=== PATIENT | male | born 1945 | race Caucasian/White ===

== ENCOUNTER 2017-10-03 10:05 | Observation (INO) | payer OTHER ==
[~2017-10-03] VITALS: Ht 180.3 cm; Wt 96.0 kg
[2017-10-03 10:07] VITALS: BP 163/77; PULSE 88; RESP 14; TEMP 99.1; O2SAT 95
--- NOTE | 2017-10-03 10:47 | PD ---
HPI Chief Complaint: GI Complaint Time Seen by Provider: 10:45 Travel History International Travel<30 days: No Contact w/Intl Traveler<30days: No Traveled to known affect area: No History of Present Illness HPI 72-year-old male came to the emergency room with history of black tarry stool that started 2 days ago. Patient says that he was out of town in [facility] 3 days ago where he had a near syncopal episode and was seen in the local emergency room. They worked him up and everything was within normal limit and eventually discharge him home. That night when he was in the hotel he noticed that he was having black tarry stool. Since then he has had couple episodes every day. When he had one this morning he decided to come to the emergency room. He has been little lightheaded and dizzy. Patient takes 1 baby aspirin every day. Also lately he's been having some neck pain radiating down his left arm for which she has been going to chiropractor and taking over- the-counter NSAID medication. He has never had GI bleed in the past. Vital signs were stable. No history of nausea vomiting. He does have some epigastric discomfort. [facility] Past Medical History Narrative Medical List of his past medical, surgical, social and family history is reviewed from the nursing note. Social History Tobacco Use: No Allergies-Medications (Allergen,Severity, Reaction): Coded Allergies: No Known Allergies (Unverified , 10/03/17) Comments No known drug allergies. Reported Meds & Prescriptions Reported Meds & Active Scripts Active Reported Pravastatin 10 Mg Tab 10 Mg PO DAILY Viagra (Sildenafil Citrate) 50 Mg Tab 50 Mg PO DAILY PRN Narrative Medication List of his home medications reviewed from the nursing note. Review of Systems Except as stated in HPI: all other systems reviewed are Neg Gastrointestinal: Positive: Other (melena) Physical Exam Narrative GENERAL: Awake, alert, mild distress SKIN: Focused skin assessment warm/dry. HEAD: Atraumatic. Normocephalic. EYES: Pupils equal and round. No scleral icterus. No injection or drainage. ENT: No nasal bleeding or discharge. Mucous membranes pink and moist. NECK: Trachea midline. No JVD. CARDIOVASCULAR: Regular rate and rhythm. No murmur appreciated. RESPIRATORY: No accessory muscle use. Clear to auscultation. Breath sounds equal bilaterally. GASTROINTESTINAL: Abdomen soft, non-tender, nondistended. Hepatic and splenic margins not palpable. MUSCULOSKELETAL: No obvious deformities. No clubbing. No cyanosis. No edema. NEUROLOGICAL: Awake and alert. No obvious cranial nerve deficits. Motor grossly within normal limits. Normal speech. PSYCHIATRIC: Appropriate mood and affect; insight and judgment normal. Data Data Last Documented VS Vital Signs Date Time Temp Pulse Resp B/P (MAP) Pulse Ox O2 Delivery O2 Flow Rate FiO2 10/03/17 11:03 71 16 148/70 (96) 98 Room Air 10/03/17 10:07 99.1 Orders Orders Complete Blood Count With Diff (10/03/17 11:05) Comprehensive Metabolic Panel (10/03/17 11:05) Lipase (10/03/17 11:05) Prothrombin Time / Inr (Pt) (10/03/17 11:05) Type And Screen (10/03/17 11:05) Ecg Monitoring (10/03/17 11:05) Iv Access Insert/Monitor (10/03/17 11:05) Oximetry (10/03/17 11:05) Sodium Chlor 0.9% 1000 Ml Inj (Ns 1000 M (10/03/17 11:05) Sodium Chloride 0.9% Flush (Ns Flush) (10/03/17 11:15) Sodium Chloride 0.9... W/Pantoprazole In (10/03/17 11:05) Sodium Chloride 0.9... W/Pantoprazole In (10/03/17 11:05) Admit Order (Ed Use Only) (10/03/17 13:00) Labs Laboratory Tests Test 10/03/17 11:10 White Blood Count 8.7 TH/MM3 Red Blood Count 3.09 MIL/MM3 Hemoglobin 10.3 GM/DL Hematocrit 30.4 % Mean Corpuscular Volume 98.4 FL Mean Corpuscular Hemoglobin 33.2 PG Mean Corpuscular Hemoglobin Concent 33.7 % Red Cell Distribution Width 14.0 % Platelet Count 293 TH/MM3 Mean Platelet Volume 8.6 FL Neutrophils (%) (Auto) 69.0 % Lymphocytes (%) (Auto) 22.2 % Monocytes (%) (Auto) 7.8 % Eosinophils (%) (Auto) 0.7 % Basophils (%) (Auto) 0.3 % Neutrophils # (Auto) 6.0 TH/MM3 Lymphocytes # (Auto) 1.9 TH/MM3 Monocytes # (Auto) 0.7 TH/MM3 Eosinophils # (Auto) 0.1 TH/MM3 Basophils # (Auto) 0.0 TH/MM3 CBC Comment DIFF FINAL Differential Comment Prothrombin Time 9.6 SEC Prothromb Time International Ratio 0.9 RATIO Blood Urea Nitrogen 21 MG/DL Creatinine 0.96 MG/DL Random Glucose 94 MG/DL Total Protein 7.0 GM/DL Albumin 3.7 GM/DL Calcium Level 8.6 MG/DL Alkaline Phosphatase 59 U/L Aspartate Amino Transf (AST/SGOT) 27 U/L Alanine Aminotransferase (ALT/SGPT) 37 U/L Total Bilirubin 0.3 MG/DL Sodium Level 140 MEQ/L Potassium Level 4.2 MEQ/L Chloride Level 105 MEQ/L Carbon Dioxide Level 28.0 MEQ/L Anion Gap 7 MEQ/L Estimat Glomerular Filtration Rate 77 ML/MIN Lipase 108 U/L MDM Medical Decision Making Medical Screen Exam Complete: Yes Emergency Medical Condition: Yes Medical Record Reviewed: Yes Differential Diagnosis Upper GI bleed, melena Narrative Course 12:42 PM patient was given 1 L of IV fluid bolus, Protonix bolus and drip. Blood test results of back and hemoglobin and hematocrit is slightly low. Patient does not require blood transfusion at this point. However given his ongoing melena he needs to be admitted so that he can get an endoscopy by GI. This could be related to the NSAID use. Awaiting for GI on the hospitalist to call back. 1 PM case was discussed with Dr. Bhandari from GI and she would like to scope him tomorrow since patient already ate breakfast this morning. Case was discussed with the hospitalist was accepted the patient. Patient is aware of this plan. Critical Care Narrative Aggregate critical care time was 30 minutes. Time to perform other separately billable procedures was not included in the critical care time. My time did not include minutes spent treating any other patients simultaneously or on activities that did not directly contribute to the patient's treatment. The services I provided to this patient were to treat and/or prevent clinically significant deterioration that could result in: Protonix bolus and drip I provided critical care services requiring my management, as noted below: Chart data review, documentation time, medication orders and management, vital sign assessments/reviewing monitor data, ordering and reviewing lab tests, ordering and interpreting/reviewing x-rays and diagnostic studies, care of the patient and discussion of the patient with the admitting physicians. Procedures EKG Prior to Arrival: No HemaPrompt Point of Care Internal Pos. & Neg. Controls: Passed Fecal Specimen Occult Blood: Positive Physician Communication Physician Communication Dr. Bhandari Diagnosis Primary Impression: Melena Admitting Information Admitting Physician Requests: Observation Scripts Pantoprazole (Protonix) 40 Mg Tab 40 MG PO BID for Ulcer Prevention, #30 TAB 0 Refills Prov: Leeann Aguilar 10/04/17 Alyssa Erickson MD Oct 03, 2017 10:47
[2017-10-03 11:03] VITALS: BP 148/70; PULSE 71; RESP 16; O2SAT 98
[2017-10-03] MEDS ORDERED: PANTOPRAZOLE INJ 80 MG in SODIUM CHLORIDE 0.9% INJ 35 ML IV ONE (11:05)
[2017-10-03] MEDS ORDERED: SODIUM CHLOR 0.9% 1000 ML INJ 1,000 ML IV SCH (11:05)
[2017-10-03] MEDS ORDERED: SODIUM CHLORIDE 0.9% FLUSH 10 ML FLUSH IVF PRN (11:15)
[2017-10-03] MEDS ORDERED: PRAV10TA PO (11:24)
[2017-10-03] MEDS ORDERED: VIAG50TA PO (11:24)
[2017-10-03 11:49] LABS: BASOPHIL % 0.3 % (0.0-2.0); EOSINOPHIL # 0.1 TH/MM3 (0-0.4); EOSINOPHIL % 0.7 % (0.0-4.0); HEMATOCRIT 30.4 % (39.0-51.0); HEMOGLOBIN 10.3 GM/DL (13.0-17.0); LYMPH % 22.2 % (9.0-44.0); LYMPHOCYTE # 1.9 TH/MM3 (1.0-4.8); MEAN CELL VOLUME 98.4 FL (80.0-100.0); MEAN CORPUSCULAR HEMOGLOBIN 33.2 PG (27.0-34.0); MEAN CORPUSCULAR HGB CONC 33.7 % (32.0-36.0); MEAN PLATELET VOLUME 8.6 FL (7.0-11.0); MONO % 7.8 % (0.0-8.0); MONOCYTE # 0.7 TH/MM3 (0-0.9); PLATELET COUNT 293 TH/MM3 (150-450); RED BLOOD COUNT 3.09 MIL/MM3 (4.50-5.90); WHITE BLOOD COUNT 8.7 TH/MM3 (4.0-11.0)
[2017-10-03 11:55] LABS: INTERNATIONAL NORMALIZED RATIO 0.9 RATIO; PROTHROMBIN TIME - PATIENT 9.6 SEC (9.8-11.6)
[2017-10-03 12:05] LABS: ALBUMIN 3.7 GM/DL (3.4-5.0); AST (GOT) 27 U/L (15-37); BLOOD UREA NITROGEN 21 MG/DL (7-18); CALCIUM 8.6 MG/DL (8.5-10.1); CHLORIDE 105 MEQ/L (98-107); CREATININE 0.96 MG/DL (0.60-1.30); GLOMERULAR FILTRATION RATE 77 ML/MIN (>89); GLUCOSE,RANDOM 94 MG/DL (74-106); LIPASE 108 U/L (73-393); SODIUM (NA) 140 MEQ/L (136-145)
[2017-10-03 12:09] LABS: ALKALINE PHOSPHATASE 59 U/L (45-117); ALT (GPT) 37 U/L (12-78); TOTAL BILIRUBIN ADULT 0.3 MG/DL (0.2-1.0)
[2017-10-03] MEDS: PANTOPRAZOLE INJ 80 MG in SODIUM CHLORIDE 0.9% INJ 100 ML IV SCH ×2 (12:43→21:47)
--- NOTE | 2017-10-03 13:41 | PD.CONS ---
HPI History of Present Illness This is a 72 year old M patient who presented to the emergency room today with complaints of black, tarry stool that began on Tuesday. He reports first BM was formed but since then stool has been loose, approx 2-3 BMs daily since Tuesday, also reports excessive flatus. Of note, pt had a recent work up at a hospital in [place] for a near syncopal episode. Pt has the lab results with him, upon reviewing them, it was noted that patient was found to be anemic with a H/H 11.8/36.1. He denies any BRBPR or black, tarry stools at that time. He denies nausea, vomiting, acid reflux, unintentional weight loss, BRBPR. He does reports some RLQ abdominal pain. Denies frequent NSAID use. Takes a baby ASA daily and has been taking OTC Acetaminophen for arthritis OTC for a left arm pain he has been having since around [place]. Denies blood thinners. Does not take a a PPI at home. Does report daily ETOH use, a few beers a day for the past thirty years. Denies smoking and illicit drug use. Has never had EGD. Last colonoscopy was approx 3 years ago, reports normal exam, has had history of colon polyps in the past. Denies history of GI bleed or ulcers. Denies recent Pepto Bismol or iron intake. Denies any history of abdominal surgeries. (Makenzie Anderson) PFSH Past Medical History Hyperlipidemia ETOH abuse Past Surgical History Sinus surgery Left and right shoulder surgery (Makenzie Anderson) Coded Allergies: No Known Allergies (Unverified , 10/03/17) Family History Father- arthrosclerosis Social History ETOH- few beers a day x 30 years Denies smoking Denies illicit drug use (Makenzie Anderson) Review of Systems Constitutional: COMPLAINS OF: Dizziness Gastrointestinal: COMPLAINS OF: Abdominal pain, Black stools, Diarrhea, DENIES : Bloody stools, Constipation, Nausea, Vomiting, Difficulty Swallowing, Odynophagia, Swelling of Abdomen, Heartburn, Hematemesis (Makenzie Anderson) GI Exam Vitals I&O Vital Signs Date Time Temp Pulse Resp B/P (MAP) Pulse Ox O2 Delivery O2 Flow Rate FiO2 10/03/17 11:03 71 16 148/70 (96) 98 Room Air 10/03/17 10:07 99.1 88 14 163/77 (105) 95 Laboratory Test 10/03/17 11:10 White Blood Count 8.7 TH/MM3 Red Blood Count 3.09 MIL/MM3 Hemoglobin 10.3 GM/DL Hematocrit 30.4 % Mean Corpuscular Volume 98.4 FL Mean Corpuscular Hemoglobin 33.2 PG Mean Corpuscular Hemoglobin Concent 33.7 % Red Cell Distribution Width 14.0 % Platelet Count 293 TH/MM3 Mean Platelet Volume 8.6 FL Neutrophils (%) (Auto) 69.0 % Lymphocytes (%) (Auto) 22.2 % Monocytes (%) (Auto) 7.8 % Eosinophils (%) (Auto) 0.7 % Basophils (%) (Auto) 0.3 % Neutrophils # (Auto) 6.0 TH/MM3 Lymphocytes # (Auto) 1.9 TH/MM3 Monocytes # (Auto) 0.7 TH/MM3 Eosinophils # (Auto) 0.1 TH/MM3 Basophils # (Auto) 0.0 TH/MM3 CBC Comment DIFF FINAL Differential Comment Prothrombin Time 9.6 SEC Prothromb Time International Ratio 0.9 RATIO Blood Urea Nitrogen 21 MG/DL Creatinine 0.96 MG/DL Random Glucose 94 MG/DL Total Protein 7.0 GM/DL Albumin 3.7 GM/DL Calcium Level 8.6 MG/DL Alkaline Phosphatase 59 U/L Aspartate Amino Transf (AST/SGOT) 27 U/L Alanine Aminotransferase (ALT/SGPT) 37 U/L Total Bilirubin 0.3 MG/DL Sodium Level 140 MEQ/L Potassium Level 4.2 MEQ/L Chloride Level 105 MEQ/L Carbon Dioxide Level 28.0 MEQ/L Anion Gap 7 MEQ/L Estimat Glomerular Filtration Rate 77 ML/MIN Lipase 108 U/L Physical Examination HEENT: Normocephalic; atraumatic CHEST: Even/unlabored CARDIAC: RRR ABDOMEN: Round, soft, RLQ tenderness, bowel sounds active EXTREMITIES: No clubbing, cyanosis, or edema. SKIN: Normal; no rash; no jaundice. BUSINESS STRATEGIST: No focal deficits; alert and oriented times three. (Makenzie Anderson) Assessment and Plan Plan Assessment - Melena- Began Tuesday night. Reports 3-4 BMs a day of black, tarry stool, now loose. H/H currently 10.3/30.4. Denies history of GIB, ulcer, NSAID use, blood thinners. Does reports daily baby ASA. Heavy ETOH use, few beers a day x 30 years. Last PO intake, breakfast this AM. Currently on Protonix gtt. - Right lower quadrant abdominal pain- Began Tuesday. Tender to palpation. Denies abdominal surgeries in the past. Last colonoscopy approx 3 years ago, reports normal exam. History of colon polyps. - ETOH abuse- A few beers a day for 30 years. Plan - EGD tomorrow morning - Obtain consents - NPO after MN - Serial H/H - Transfuse as needed - CT Abdomen and pelvis W contrast - Continue Protonix gtt - Supportive care - Further recommendations to follow based on results of above Patient has been seen and examined by myself and Dr. Bhandari and this note is written on her behalf (Makenzie Anderson) Physician Comments seen, examined agree with above (Loni Bhandari MD) Makenzie Anderson Oct 03, 2017 13:41 Loni Bhandari MD Oct 03, 2017 18:06
[2017-10-03] MEDS ORDERED: DIATRIZOATE MEGLUM/DIATRIZOATE SOD 9 ML CUP ONE (13:59)
[2017-10-03] MEDS ORDERED: DIATRIZOATE MEGLUM/DIATRIZOATE SOD 9 ML CUP PO ONE (14:15)
--- NOTE | 2017-10-03 14:57 | HHI.HP ---
HPI Service [facility] Hospitalists Primary Care Physician [facility] Admission Diagnosis GI bleed, melena Chief Complaint: Black tarry stools x 3 days Travel History International Travel<30 Days: No Contact w/Intl Traveler <30 Da: No Traveled to Known Affected Are: No History of Present Illness This 72-year-old male patient with past medical history which includes hyperlipidemia. Patient reports that early August he began to have pain in neck and arm, currently being treated by chiropractor. Patient has been taking an OTC generic acetaminophen 2 x 650 mg TID and 1 aspirin each night. Patient reports he was playing in a softball tournament in [place] on Tuesday when he began to feel, "faint." Patient described feeling a little dizzy. Patient was seen in hospital in [place] for dizziness and then DC. Since Tuesday patient continues to feel, "not quit right," mostly described at generalized weakness/ occasional dizziness. Patient denies syncopal episode or LOC. Patient reports dark tarry stools for the past 3 days. Patient has had approximately 2-3 BMs daily since Tuesday associated with occasional right lower quadrant abdominal pain. Patient denies nausea, vomiting, shortness of breath or chest pain. Patient report prior colonoscopy showed polyps believes this was 3-4 years ago. hgb Tuesday at [facility] was 11.8 (10/01) today 10.8 Review of Systems Constitutional: COMPLAINS OF: Dizziness, DENIES: Fatigue, Fever, Chills Eyes: DENIES: Blurred vision, Diplopia, Vision loss Respiratory: DENIES: Cough, Sputum production, Shortness of breath Cardiovascular: DENIES: Chest pain, Palpitations, Dyspnea on Exertion Gastrointestinal: COMPLAINS OF: Abdominal pain, Black stools, DENIES: Nausea, Vomiting Neurologic: DENIES: Abnormal gait, Headache, Localized weakness Psychiatric: DENIES: Anxiety, Confusion, Depression Past Family Social History Past Medical History Hyperlipidemia Past Surgical History Sinus surgery January 2017 Left Right shoulder surgery arthroscopic rotator cuff repair Lumbar laminectomy 1982 Reported Medications Pravastatin 10 Mg Tab 10 Mg PO DAILY Viagra (Sildenafil Citrate) 50 Mg Tab 50 Mg PO DAILY PRN Allergies: Coded Allergies: No Known Allergies (Unverified , 10/03/17) Active Ordered Medications Current Medications Medications (Trade) Dose Ordered Sig/Denise Route Start Time Stop Time Status Last Admin (NS Flush) 2 ml UNSCH PRN IVF 10/03/17 11:15 Pantoprazole Sodium 80 mg/ Sodium Chloride 100 ml @ 10 mls/hr Q10H IV 10/03/17 11:05 10/03/17 12:43 Family History Father- 72 arthrosclerosis Mother 87 CHF Denies family history of cancer Social History ETOH- 1-2 beers per night Denies smoking Denies illicit drug use Physical Exam Vital Signs Vital Signs Date Time Temp Pulse Resp B/P (MAP) Pulse Ox O2 Delivery O2 Flow Rate FiO2 10/03/17 11:03 71 16 148/70 (96) 98 Room Air 10/03/17 10:07 99.1 88 14 163/77 (105) 95 Physical Exam GENERAL: This is a well-nourished, well-developed patient, in no apparent distress. SKIN: No rashes, ecchymoses or lesions. Cool and dry. HEAD: Atraumatic. Normocephalic. No temporal or scalp tenderness. EYES: Extraocular motions intact. No scleral icterus. No injection or drainage. CARDIOVASCULAR: Regular rate and rhythm RESPIRATORY: Clear to auscultation. Breath sounds equal bilaterally. GASTROINTESTINAL: Abdomen soft, non-tender, nondistended. MUSCULOSKELETAL: Extremities without clubbing, cyanosis, or edema. No joint tenderness, effusion, or edema noted. No calf tenderness. Negative Homans sign bilaterally. NEUROLOGICAL: Awake and alert. Motor and sensory grossly within normal limits. Five out of 5 muscle strength in all muscle groups. Normal speech. Laboratory Laboratory Tests Test 10/03/17 11:10 White Blood Count 8.7 Red Blood Count 3.09 Hemoglobin 10.3 Hematocrit 30.4 Mean Corpuscular Volume 98.4 Mean Corpuscular Hemoglobin 33.2 Mean Corpuscular Hemoglobin Concent 33.7 Red Cell Distribution Width 14.0 Platelet Count 293 Mean Platelet Volume 8.6 Neutrophils (%) (Auto) 69.0 Lymphocytes (%) (Auto) 22.2 Monocytes (%) (Auto) 7.8 Eosinophils (%) (Auto) 0.7 Basophils (%) (Auto) 0.3 Neutrophils # (Auto) 6.0 Lymphocytes # (Auto) 1.9 Monocytes # (Auto) 0.7 Eosinophils # (Auto) 0.1 Basophils # (Auto) 0.0 CBC Comment DIFF FINAL Differential Comment Prothrombin Time 9.6 Prothromb Time International Ratio 0.9 Blood Urea Nitrogen 21 Creatinine 0.96 Random Glucose 94 Total Protein 7.0 Albumin 3.7 Calcium Level 8.6 Alkaline Phosphatase 59 Aspartate Amino Transf (AST/SGOT) 27 Alanine Aminotransferase (ALT/SGPT) 37 Total Bilirubin 0.3 Sodium Level 140 Potassium Level 4.2 Chloride Level 105 Carbon Dioxide Level 28.0 Anion Gap 7 Estimat Glomerular Filtration Rate 77 Lipase 108 Result Diagram: 10/03/17 1110 10/03/17 1110 Caprini VTE Risk Assessment Caprini VTE Risk Assessment: No/Low Risk (score <= 1) Caprini Risk Assessment Model Point Value = 1 Point Value = 2 Point Value = 3 Point Value = 5 Age 41-60 Minor surgery BMI > 25 kg/m2 Swollen legs Varicose veins or History of unexplained or recurrent spontaneous Oral contraceptives or hormone replacement Sepsis (< 1 month) Serious lung disease, including pneumonia (< 1 month) Abnormal pulmonary function Acute myocardial infarction Congestive heart failure (< 1 month) History of inflammatory bowel disease Medical patient at bed rest Age 61-74 Arthroscopic surgery Major open surgery (> 45 min) Laparoscopic surgery (> 45 min) Malignancy Confined to bed (> 72 hours) Immobilizing plaster cast Central venous access Age >= 75 History of VTE Family history of VTE Factor V Leiden Prothrombin [id number] Lupus anticoagulant Anticardiolipin antibodies Elevated serum homocysteine Heparin-induced thrombocytopenia Other congenital or acquired thrombophilia Stroke (< 1 month) Elective arthroplasty Hip, pelvis, or leg fracture Acute spinal cord injury (< 1 month) Prophylaxis Regimen Total Risk Factor Score Risk Level Prophylaxis Regimen 0-1 Low Early ambulation 2 Moderate Order ONE of the following: *Sequential Compression Device (SCD) *Heparin 5000 units SQ BID 3-4 Higher Order ONE of the following medications: *Heparin 5000 units SQ TID *Enoxaparin/Lovenox 40 mg SQ daily (WT < 150 kg, CrCl > 30 mL/min) *Enoxaparin/Lovenox 30 mg SQ daily (WT < 150 kg, CrCl > 10-29 mL/min) *Enoxaparin/Lovenox 30 mg SQ BID (WT < 150 kg, CrCl > 30 mL/min) AND/OR *Sequential Compression Device (SCD) 5 or more Highest Order ONE of the following medications: *Heparin 5000 units SQ TID (Preferred with Epidurals) *Enoxaparin/Lovenox 40 mg SQ daily (WT < 150 kg, CrCl > 30 mL/min) *Enoxaparin/Lovenox 30 mg SQ daily (WT < 150 kg, CrCl > 10-29 mL/min) *Enoxaparin/Lovenox 30 mg SQ BID (WT < 150 kg, CrCl > 30 mL/min) AND *Sequential Compression Device (SCD) Assessment and Plan Problem List: (1) GI bleed ICD Codes: K92.2 - Gastrointestinal hemorrhage, unspecified Plan: This 72-year-old male patient with past medical history which includes hyperlipidemia. Patient presents to emergency department with complains of GI bleeding. Patient reports past 3 days he has had black tarry stools. - Consult GI - Protonix drip started by ER will continue - Plan for EGD tomorrow morning - NPO after MN - CBC in AM - CT Abdomen and pelvis with contrast pending - Supportive care SCDs for DVT prophylaxis (2) Hyperlipemia ICD Codes: E78.5 - Hyperlipidemia, unspecified Plan: Continue patient's home Pravastatin Assessment and Plan Patient examined. Assessment and plan formulated with Leeann Aguilar PA-C. I agree with the above. acute gib. symptomatic acute blood loss anemia. ?unclear source. was taking acetaminophen otc for neck pain. drinks 2 beers per daily and a daily asa. npo after mn for egd. iv ppi started. Leeann Aguilar Oct 03, 2017 14:57 Patel Clement MD Oct 03, 2017 16:26
[2017-10-03] MEDS ORDERED: IOHEXOL 350 MG/ML 10 ML VIAL (for RAD DIAG) IVCONTRAST ONE (15:15)
[2017-10-03] MEDS ORDERED: NALOXONE HCL 0.4 MG/ML AMP IV PUSH PRN (15:30)
[2017-10-03] MEDS ORDERED: SODIUM CHLORIDE 0.9% FLUSH 10 ML FLUSH IV FLUSH PRN (15:30)
[2017-10-03] MEDS ORDERED: ONDANSETRON HCL 4 MG/2 ML VIAL IVP PRN (15:30)
--- NOTE | 2017-10-03 16:10 | RADRPT ---
EXAM DATE/TIME: 10/03/2017 14:55 [facility] COMPARISON: No previous studies available for comparison. INDICATIONS : Right lower abdomen pain today. IV CONTRAST: 95 cc Omnipaque 350 (iohexol) IV ORAL CONTRAST: No oral contrast ingested. RADIATION DOSE: 9.36 CTDIvol (mGy) MEDICAL HISTORY : None SURGICAL HISTORY : None. ENCOUNTER: Initial ACUITY: 1 day PAIN SCALE: 7/10 LOCATION: Right lower quadrant TECHNIQUE: Volumetric scanning of the abdomen and pelvis was performed. Using automated exposure control and ad justment of the mA and/or kV according to patient size, radiation dose was kept as low as reasonably achievable to obtain optimal diagnostic quality images. DICOM format image data is available electro nically for review and comparison. FINDINGS: LOWER LUNGS: Linear atelectasis/scarring in both lung bases. Associated probable postinflammatory pleural based no dule in the left. No confluent infiltrate LIVER: Homogeneous density without lesion. There is no dilation of the biliary tree. No calcified gallston es. SPLEEN: Normal size without lesion. PANCREAS: Within normal limits. KIDNEYS: Normal in size and shape. There is no mass, stone or hydronephrosis. Bilateral probable parapelvic c ysts. ADRENAL GLANDS: Within normal limits. VASCULAR: There is no aortic aneurysm. BOWEL/MESENTERY: The stomach, small bowel, and colon demonstrate no acute abnormality. There is no free intraperitone al air or fluid. Appendix is identified and is radiographically normal. ABDOMINAL WALL: Within normal limits. RETROPERITONEUM: There is no lymphadenopathy. BLADDER: No wall thickening or mass. REPRODUCTIVE: Mild prominence of the prostate at 4.4 cm.. INGUINAL: There is no lymphadenopathy or hernia. MUSCULOSKELETAL: Within normal limits for patient age. Multilevel degenerative spurring of the thoracolumbar spine. CONCLUSION: 1. Bibasilar atelectasis/scarring. Focal pleural based nodule laterally in the left base is probably postinflammatory. 2. Bilateral parapelvic cysts in the kidneys. 3. No acute intraperitoneal or pelvic process to explain current clinical symptoms. Specifically, the appendix is radiographically normal. No right-sided renal stones and the gallbladder is radiographic ally intact. Jagjit Anderson MD on October 03, 2017 at 16:00 Board Certified Radiologist. This report was verified electronically.
[2017-10-03 17:01] VITALS: BP 151/66; PULSE 62; RESP 18; TEMP 98.4; O2SAT 97
[2017-10-03] MEDS: SODIUM CHLOR 0.9% 1000 ML INJ 1,000 ML IV SCH (17:48)
[2017-10-03 19:46] VITALS: BP 148/67; PULSE 67; RESP 16; TEMP 98.6; O2SAT 100
[2017-10-03] MEDS: SODIUM CHLORIDE 0.9% FLUSH 10 ML FLUSH IV FLUSH SCH (20:27)
[2017-10-03 23:25] LABS: HEMATOCRIT 32.6 % (39.0-51.0); HEMOGLOBIN 10.5 GM/DL (13.0-17.0)
[2017-10-04 00:51] VITALS: BP 119/58; PULSE 68; RESP 18; TEMP 98.2; O2SAT 99
[2017-10-04] MEDS: SODIUM CHLOR 0.9% 1000 ML INJ 1,000 ML IV SCH ×2 (01:24→14:32)
[2017-10-04] MEDS ORDERED: POVIDONE IODINE 5% (ANTISEPSIS KIT) 4 APPLICATIONS EACH NARE PRN (01:30)
[2017-10-04] MEDS ORDERED: METOPROLOL TARTRATE 25 MG TAB PO PRN (01:30)
[2017-10-04] MEDS ORDERED: LACTATED RINGER'S 1000 ML IV PRN (01:30)
[2017-10-04] MEDS ORDERED: SODIUM CHLORID 0.9% 500 ML IV PRN (01:30)
[2017-10-04] MEDS ORDERED: CHLORHEXIDINE GLUCONATE 2 % 1 PACK (2 CLOTHS) TOPICAL PRN (01:30)
[2017-10-04 01:59] LABS: HEMATOCRIT 29.9 % (39.0-51.0); HEMOGLOBIN 10.1 GM/DL (13.0-17.0)
[2017-10-04 03:55] VITALS: BP 120/55; PULSE 57; RESP 17; TEMP 98.1; O2SAT 96
[2017-10-04 07:05] LABS: AUTOMATED NEUTROPHIL # 3.9 TH/MM3 (1.8-7.7); BASOPHIL % 0.7 % (0.0-2.0); EOSINOPHIL # 0.2 TH/MM3 (0-0.4); EOSINOPHIL % 2.5 % (0.0-4.0); HEMOGLOBIN 9.5 GM/DL (13.0-17.0); LYMPH % 29.7 % (9.0-44.0); MEAN CORPUSCULAR HEMOGLOBIN 34.7 PG (27.0-34.0); MEAN CORPUSCULAR HGB CONC 35.1 % (32.0-36.0); MEAN PLATELET VOLUME 8.7 FL (7.0-11.0); MONO % 8.4 % (0.0-8.0); MONOCYTE # 0.6 TH/MM3 (0-0.9); NEUT % 58.7 % (16.0-70.0); PLATELET COUNT 258 TH/MM3 (150-450); RED BLOOD COUNT 2.73 MIL/MM3 (4.50-5.90); RED CELL DISTRIBUTION WIDTH 13.6 % (11.6-17.2); WHITE BLOOD COUNT 6.6 TH/MM3 (4.0-11.0)
[2017-10-04 07:39] LABS: BICARBONATE 27.7 MEQ/L (21.0-32.0); CREATININE 0.91 MG/DL (0.60-1.30)
[2017-10-04] MEDS: SODIUM CHLORIDE 0.9% FLUSH 10 ML FLUSH IV FLUSH SCH (08:08)
[2017-10-04] MEDS: PANTOPRAZOLE INJ 80 MG in SODIUM CHLORIDE 0.9% INJ 100 ML IV SCH (08:08)
--- NOTE | 2017-10-04 08:34 | HHI.PR ---
Subjective Remarks Patient reports no BMs through the night continues to have mild intermitted achy type abd pain mostly on the right side Objective Vitals Vital Signs Date Time Temp Pulse Resp B/P (MAP) Pulse Ox O2 Delivery O2 Flow Rate FiO2 10/04/17 03:55 98.1 57 17 120/55 (76) 96 10/04/17 00:51 98.2 68 18 119/58 (78) 99 10/03/17 19:46 98.6 67 16 148/67 (94) 100 10/03/17 17:01 98.4 62 18 151/66 (94) 97 10/03/17 11:03 71 16 148/70 (96) 98 Room Air 10/03/17 10:07 99.1 88 14 163/77 (105) 95 Result Diagram: 10/04/17 0634 10/04/17 0634 Other Results Laboratory Tests Test 10/03/17 11:10 10/03/17 22:31 10/04/17 01:34 10/04/17 06:34 White Blood Count 8.7 TH/MM3 6.6 TH/MM3 Red Blood Count 3.09 MIL/MM3 2.73 MIL/MM3 Hemoglobin 10.3 GM/DL 10.5 GM/DL 10.1 GM/DL 9.5 GM/DL Hematocrit 30.4 % 32.6 % 29.9 % 27.0 % Mean Corpuscular Volume 98.4 FL 99.0 FL Mean Corpuscular Hemoglobin 33.2 PG 34.7 PG Mean Corpuscular Hemoglobin Concent 33.7 % 35.1 % Red Cell Distribution Width 14.0 % 13.6 % Platelet Count 293 TH/MM3 258 TH/MM3 Mean Platelet Volume 8.6 FL 8.7 FL Neutrophils (%) (Auto) 69.0 % 58.7 % Lymphocytes (%) (Auto) 22.2 % 29.7 % Monocytes (%) (Auto) 7.8 % 8.4 % Eosinophils (%) (Auto) 0.7 % 2.5 % Basophils (%) (Auto) 0.3 % 0.7 % Neutrophils # (Auto) 6.0 TH/MM3 3.9 TH/MM3 Lymphocytes # (Auto) 1.9 TH/MM3 2.0 TH/MM3 Monocytes # (Auto) 0.7 TH/MM3 0.6 TH/MM3 Eosinophils # (Auto) 0.1 TH/MM3 0.2 TH/MM3 Basophils # (Auto) 0.0 TH/MM3 0.0 TH/MM3 CBC Comment DIFF FINAL DIFF FINAL Differential Comment Prothrombin Time 9.6 SEC Prothromb Time International Ratio 0.9 RATIO Blood Urea Nitrogen 21 MG/DL 13 MG/DL Creatinine 0.96 MG/DL 0.91 MG/DL Random Glucose 94 MG/DL 98 MG/DL Total Protein 7.0 GM/DL Albumin 3.7 GM/DL Calcium Level 8.6 MG/DL 8.0 MG/DL Alkaline Phosphatase 59 U/L Aspartate Amino Transf (AST/SGOT) 27 U/L Alanine Aminotransferase (ALT/SGPT) 37 U/L Total Bilirubin 0.3 MG/DL Sodium Level 140 MEQ/L 142 MEQ/L Potassium Level 4.2 MEQ/L 4.1 MEQ/L Chloride Level 105 MEQ/L 108 MEQ/L Carbon Dioxide Level 28.0 MEQ/L 27.7 MEQ/L Anion Gap 7 MEQ/L 6 MEQ/L Estimat Glomerular Filtration Rate 77 ML/MIN 82 ML/MIN Lipase 108 U/L Imaging Last Impressions Abdomen/Pelvis CT 10/03/17 0000 Signed Impressions: Service Date/Time: Tuesday, October 03, 2017 14:55 - CONCLUSION: 1. Bibasilar atelectasis/scarring. Focal pleural based nodule laterally in the left base is probably postinflammatory. 2. Bilateral parapelvic cysts in the kidneys. 3. No acute intraperitoneal or pelvic process to explain current clinical symptoms. Specifically, the appendix is radiographically normal. No right-sided renal stones and the gallbladder is radiographically intact. Jagjit Anderson MD Objective Remarks GENERAL: This is a well-nourished, well-developed patient, in no apparent distress. CARDIOVASCULAR: Regular rate and rhythm RESPIRATORY: Clear to auscultation. Breath sounds equal bilaterally. GASTROINTESTINAL: Abdomen soft, non-tender at this time, nondistended. Normal active bowel sounds MUSCULOSKELETAL: Extremities without clubbing, cyanosis, or edema. NEURO: Alert & Oriented x4 to person, place, time, situation. Moves all ext x4 A/P Problem List: (1) GI bleed ICD Codes: K92.2 - Gastrointestinal hemorrhage, unspecified Status: Acute Plan: This 72-year-old male patient with past medical history which includes hyperlipidemia. Patient presents to emergency department with complains of GI bleeding. Patient reports past 3 days he has had black tarry stools. - Consult GI, appreciate input - Protonix drip started by ER will continue - Plan for EGD this AM - NPO - hgb 10.3 (10/03), 9.5 (10/04) - CT Abdomen and pelvis with contrast pending reviewed and reveals: Bibasilar atelectasis/scarring. Focal pleural based nodule laterally in the left base is probably inflammatory. Bilateral parapelvic cysts in the kidneys. No acute intraperitoneal or pelvic process to explain current clinical symptoms. Specifically, the appendix is radiographically normal. No right -sided renal stones and the gallbladder is radiographically intact. - Supportive care, await EGD results SCDs for DVT prophylaxis (2) Hyperlipemia ICD Codes: E78.5 - Hyperlipidemia, unspecified Status: Chronic Plan: Continue patient's home Pravastatin Assessment and Plan Patient examined. Assessment and plan formulated with Leeann Aguilar PA-C. I agree with the above. duodenal bulb ulcer. symptomatic gib. stop nsaids and stop etoh. ppi bid and f/u GI for bx results. Leeann Aguilar Oct 04, 2017 08:34 Patel Clement MD Oct 04, 2017 14:51
[2017-10-04 08:56] VITALS: BP 122/58; PULSE 60; RESP 18; TEMP 98.6; O2SAT 95
[2017-10-04] MEDS ORDERED: PROPOFOL 200 MG/20 ML AMP IV ONE (12:00)
[2017-10-04] MEDS ORDERED: LIDOCAINE HCL 1% PF 5 ML SYRINGE OTHER ONE (12:00)
[2017-10-04 12:33] VITALS: BP 143/67; PULSE 61; RESP 18; TEMP 98.9; O2SAT 96
--- NOTE | 2017-10-04 13:32 | GIPROC ---
[facility] [address] [facility]. [facility], [address] EGD PROCEDURE REPORT EXAM DATE: 10/04/2017 PATIENT NAME: Mark Anthony Robb MR #: [id number] BIRTHDATE: 1945 ATTENDING: Loni Bhandari MD ORDER #: [id number] LITERATURE PROFESSOR: Pat Blue and Cecil Shipman STATUS: inpatient INDICATIONS: The patient is a 72 yr old male here for an EGD due to melena, abdominal pain PROCEDURE PERFORMED: EGD w/ biopsy MEDICATIONS: None and Per Anesthesia. TOPICAL ANESTHETIC: none CONSENT: The patient understands the risks and benefits of the procedure and understands that these risks include, but are not limited to: sedation, allergic reaction, infection, perforation and/or bleeding. Alternative means of evaluation and treatment include, among others: physical exam, x-rays, and/or surgical intervention. The patient elects to proceed with this endoscopic procedure. medical equipment was checked for proper function. Hand hygiene and appropriate measures for infection prevention was taken. After the risks, benefits and alternatives of the procedure were thoroughly explained, Informed consent was verified, confirmed and timeout was successfully executed by the treatment team. The patient was anesthetized with topical anesthesia and the Pentax EG-[id number] endoscope was introduced through the mouth and advanced to the second portion of the duodenum. Retroflexed views revealed a hiatal hernia The gastroscope was then slowly withdrawn and removed. Duodenal bulb ulcer-biopsy duodenum second portion-biopsy gastric antrum two ulcers-clean base-8 mm each-biopsy esophagitis distal esophagus-biopsy. ADVERSE EVENTS: There were no complications. IMPRESSIONS: 1. Duodenal bulb ulcer-biopsy duodenum second portion-biopsy gastric antrum two ulcers-clean base-8 mm each-biopsy esophagitis distal esophagus-biopsy 2. Retroflexed views revealed a hiatal hernia RECOMMENDATIONS: 1. Await biopsy results. Biopsy results will not be ready for 7-10 days. If you don't hear from us in two weeks, call our office for biopsy results. 2. Anti-reflux regimen 3. Continue PPI 4. Avoid NSAIDS 5. 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
[2017-10-04 13:54] VITALS: BP 134/69; PULSE 59; RESP 18; TEMP 98.2; O2SAT 98
[2017-10-04] MEDS ORDERED: PROT40TA PO (14:38)
--- NOTE | 2017-10-04 14:45 | HHI.DS ---
Discharge Summary Admission Date Oct 03, 2017 at 13:01 Discharge Date: Oct 04, 2017 Admitting Diagnosis GI bleed, melena (1) GI bleed ICD Codes: K92.2 - Gastrointestinal hemorrhage, unspecified Status: Acute (2) Hyperlipemia ICD Codes: E78.5 - Hyperlipidemia, unspecified Status: Chronic Consultants Dr. Bhandari Procedures EGD 10/04/[address] Bhandari Brief History This 72-year-old male patient with past medical history which includes hyperlipidemia. Patient reports that early August he began to have pain in neck and arm, currently being treated by chiropractor. Patient has been taking an OTC generic acetaminophen 2 x 650 mg TID and 1 aspirin each night. Patient reports he was playing in a softball tournament in [place] on Tuesday when he began to feel, "faint." Patient described feeling a little dizzy. Patient was seen in hospital in [place] for dizziness and then DC. Since Tuesday patient continues to feel, "not quit right," mostly described at generalized weakness/ occasional dizziness. Patient denies syncopal episode or LOC. Patient reports dark tarry stools for the past 3 days. Patient has had approximately 2-3 BMs daily since Tuesday associated with occasional right lower quadrant abdominal pain. Patient denies nausea, vomiting, shortness of breath or chest pain. Patient report prior colonoscopy showed polyps believes this was 3-4 years ago. hgb Tuesday at [facility] was 11.8 (10/01) today 10.8 CBC/BMP: 10/04/17 0634 10/04/17 0634 Significant Findings Laboratory Tests Test 10/03/17 11:10 10/03/17 22:31 10/04/17 01:34 10/04/17 06:34 Red Blood Count 3.09 MIL/MM3 (4.50-5.90) 2.73 MIL/MM3 (4.50-5.90) Hemoglobin 10.3 GM/DL (13.0-17.0) 10.5 GM/DL (13.0-17.0) 10.1 GM/DL (13.0-17.0) 9.5 GM/DL (13.0-17.0) Hematocrit 30.4 % (39.0-51.0) 32.6 % (39.0-51.0) 29.9 % (39.0-51.0) 27.0 % (39.0-51.0) Prothrombin Time 9.6 SEC (9.8-11.6) Blood Urea Nitrogen 21 MG/DL (7-18) Estimat Glomerular Filtration Rate 77 ML/MIN (>89) 82 ML/MIN (>89) Mean Corpuscular Hemoglobin 34.7 PG (27.0-34.0) Monocytes (%) (Auto) 8.4 % (0.0-8.0) Calcium Level 8.0 MG/DL (8.5-10.1) Chloride Level 108 MEQ/L (98-107) PE at Discharge GENERAL: This is a well-nourished, well-developed patient, in no apparent distress. CARDIOVASCULAR: Regular rate and rhythm RESPIRATORY: Clear to auscultation. Breath sounds equal bilaterally. GASTROINTESTINAL: Abdomen soft, non-tender at this time, nondistended. Normal active bowel sounds MUSCULOSKELETAL: Extremities without clubbing, cyanosis, or edema. NEURO: Alert & Oriented x4 to person, place, time, situation. Moves all ext x4 Hospital Course GI bleed This 72-year-old male patient with past medical history which includes hyperlipidemia. Patient presents to emergency department with complains of GI bleeding. Patient reports past 3 days he has had black tarry stools. - Consult GI, appreciate input - Protonix drip started by ER continued while in the hospital - hgb 10.3 (10/03), 9.5 (10/04) - CT Abdomen and pelvis with contrast pending reviewed and reveals: Bibasilar atelectasis/scarring. Focal pleural based nodule laterally in the left base is probably inflammatory. Bilateral parapelvic cysts in the kidneys. No acute intraperitoneal or pelvic process to explain current clinical symptoms. Specifically, the appendix is radiographically normal. No right -sided renal stones and the gallbladder is radiographically intact. - Supportive care - S/P EGD 10/04/[address] Bhandari IMPRESSIONS: 1. Duodenal bulb ulcer-biopsy duodenum second portion-biopsy gastric antrum two ulcers-clean base-8 mm each-biopsy esophagitis distal esophagus-biopsy 2. Retroflexed views revealed a hiatal hernia RECOMMENDATIONS: 1. Await biopsy results. Biopsy results will not be ready for 7-10 days. If you don't hear from us in two weeks, call our office for biopsy results. 2. Anti-reflux regimen 3. Continue PPI 4. Avoid NSAIDS 5. 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 Await biopsy results. Biopsy results will not be ready for 7-10 days. If you don't hear from us in two weeks, call our office for biopsy results. 2. Anti-reflux regimen 3. Continue PPI 4. 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
--- NOTE | 2017-10-04 16:10 | EKG ---
Date Performed: 10/03/2017 Time Performed: 18:12:43 PTAGE: 72 years EKG: SINUS BRADYCARDIA WITH FIRST DEGREE AV BLOCK MARKED LEFT AXIS DEVIATION INCOMPLETE RIGHT BU NDLE BRANCH BLOCK MODERATE VOLTAGE CRITERIA FOR LVH, CONSIDER NORMAL VARIANT MINIMAL ST DEPRESSION An teroseptal myocardial infarction - age indeterminate ABNORMAL ECG NO PREVIOUS TRACING Clinical correlation is recommended DOCTOR: Mark Anthony Barry Interpretating Date/Time 10/04/2017 16:09:30
== END 2017-10-04 17:26 | disposition home or self-care (01) ==
LOC: NEPE 10:05 → NEDA 13:01 → NEPFCDU 16:56
PROVIDERS: ADMIT Hospitalist; ATTEND Hospitalist
DX: K92.1 Melena (principal); R55 Syncope and collapse; R42 Dizziness and giddiness; M54.2 Cervicalgia; R10.9 Unspecified abdominal pain; K44.9 Diaphragmatic hernia without obstruction or gangrene; K26.9 Duodenal ulcer, unspecified as acute or chronic, without hemorrhage or perforation; K25.9 Gastric ulcer, unspecified as acute or chronic, without hemorrhage or perforation; K20.9 Esophagitis, unspecified; R00.1 Bradycardia, unspecified; I44.0 Atrioventricular block, first degree; J98.11 Atelectasis; N28.1 Cyst of kidney, acquired
CPT/HCPCS: 00731; 43239; 74177; 80048; 80053; 83690; 85014; 85018; 85025; 85610; 86850; 86900; 86901; 88305; 93005; 96361; 96365; 96366; 99291; C9113; G0378; J7030; J7120; Q9963; Q9967; 88312